=== PATIENT | female | born 1945 | race Caucasian/White ===

== ENCOUNTER → 2017-03-08 | Day surgery (SDC) | payer OTHER ==
[~2017-03-08] MED LIST: ACETAMINOPHEN/HYDROcodone 325 MG/5 MG TAB ONE; BUPIVACAINE/EPINEPHRINE 0.5% PF 10 ML VIAL ONE; CLINDAMYCIN PHOS 600 MG/4 ML VIAL ONE; LACTATED RINGER'S 1000 ML INJ 1,000 ML ONE; MEPERIDINE HCL 25 MG/ML VIAL ONE; MIDAZOLAM HCL 2 MG/2 ML VIAL ONE; ONDANSETRON HCL 4 MG/2 ML VIAL IV PUSH ONE; PROPOFOL 200 MG/20 ML AMP IV ONE; VANCOMYCIN HCL 1000 MG VIAL ONE
--- NOTE | 2017-03-10 13:03 | MP ---
cc: MILES FUENTES M.D. DATE OF SURGERY: 03/08/2017 PREOPERATIVE DIAGNOSIS Right knee medial and lateral meniscus tear. POSTOPERATIVE DIAGNOSES Right knee medial and lateral meniscus tear. PROCEDURE Right knee arthroscopic partial medial and lateral meniscectomy. SURGEON Dr. Miles Fuentes ANESTHESIA General. ESTIMATED BLOOD LOSS Less than 10 cc. TOURNIQUET TIME Zero minutes. COMPLICATIONS None. JUSTIFICATION This patient is a 71-year-old female who has increasing pain in the right knee with failure of conservative treatment. Clinical exam as well as MRI confirmed the above-named findings. The patient was counseled as to the risks, benefits and alternatives to the above-named proposed surgical procedure. She did wish to proceed with surgery. PROCEDURE IN DETAIL Written consent was obtained. The patient was identified by name, taken to the operating room and placed supine on the operating table. General anesthesia was administered as well as 600 mg of IV clindamycin and one gram of IV vancomycin as she does have a penicillin allergy. The right thigh was carefully placed in a well-padded leg valenzuela. The right lower extremity was prepped and draped using isopropyl alcohol, Hibiclens solution and DuraPrep solution. After a timeout was performed, a standard medial and lateral parapatellar arthroscopic portal was established. The patellofemoral joint revealed grade II chondromalacia along the undersurface of the patella. The medial compartment revealed a large complex tear of the posterior horn of the medial meniscus. An arthroscopic biter followed by an arthroscopic shaver was introduced into the medial compartment to perform a partial medial meniscectomy. The meniscal rim was probed and noted to be stable. There was evidence of grade II and some grade III chondromalacia of the medial femoral condyle. The intercondylar notch revealed the anterior and posterior cruciate ligament to be intact. She did have significant synovitis within her knee. The lateral compartment did reveal a midbody tear of the lateral meniscus extending into the anterior and posterior horns and also some focal grade II chondromalacia of the lateral femoral condyle. An arthroscopic shaver was introduced into the lateral compartment to perform partial lateral meniscectomy. The meniscal rim was again probed and noted to be stable after meniscectomy. At the conclusion of the surgical procedure 30 cc of 0.5% Marcaine with epinephrine was injected into the knee joint. The arthroscopic portals were closed with 3-0 Prolene suture. Sterile dressings were applied. The patient tolerated the procedure well with no intraoperative complications noted. MD CHLOE Link/ISATU /3:55 PM /12:50 PM
== END | disposition home or self-care (01) ==
LOC: ESDC 13:01
PROVIDERS: ATTEND Orthopaedic Surgery Sports Medicine
DX: S83.231A Complex tear of medial meniscus, current injury, right knee, initial encounter (principal); S83.281A Other tear of lateral meniscus, current injury, right knee, initial encounter
CPT/HCPCS: 01400; 29880; J2175; J2250; J2405; J3010; J3370; J7120

== ENCOUNTER → 2018-01-12 | Outpatient (CLI) | payer OTHER ==
[~2018-01-12] MED LIST changes: -ACETAMINOPHEN/HYDROcodone 325 MG/5 MG TAB ONE; +ASPI1TAB57 PO; -BUPIVACAINE/EPINEPHRINE 0.5% PF 10 ML VIAL ONE; -CLINDAMYCIN PHOS 600 MG/4 ML VIAL ONE; +D31000CA3 PO; -LACTATED RINGER'S 1000 ML INJ 1,000 ML ONE; +LEVO25TA4 PO; -MEPERIDINE HCL 25 MG/ML VIAL ONE; -MIDAZOLAM HCL 2 MG/2 ML VIAL ONE; -ONDANSETRON HCL 4 MG/2 ML VIAL IV PUSH ONE; +OXYGENDME NAS.CANULA; -PROPOFOL 200 MG/20 ML AMP IV ONE; +UMEC1AER INH; -VANCOMYCIN HCL 1000 MG VIAL ONE; +VITA10004 PO
== END ==
LOC: CPRE 11:21
PROVIDERS: ATTEND Orthopaedic Surgery Sports Medicine
DX: M17.11 Unilateral primary osteoarthritis, right knee (principal)

== ENCOUNTER 2018-01-29 05:11 | Inpatient (IN) | payer OTHER, MEDICARE ==
[~2018-01-29] VITALS: Ht 160 cm; Wt 102.4 kg
[2018-01-29] MEDS ORDERED: POVIDONE IODINE 5% (ANTISEPSIS KIT) 4 APPLICATIONS EACH NARE PRN (05:45)
[2018-01-29] MEDS ORDERED: DEXAMETHASONE SOD PHOS 20 MG/5 ML VIAL IV ONE (05:45)
[2018-01-29] MEDS ORDERED: CHLORHEXIDINE GLUCONATE 4% SOLN 120 ML BTL TOPICAL SCH (05:45)
[2018-01-29] MEDS ORDERED: SODIUM CHLORID 0.9% 500 ML IV PRN (05:45)
[2018-01-29] MEDS ORDERED: VANCOMYCIN 1000 MG/NS 250 ML (for <70 kg) IV SCH ×2 (05:45)
[2018-01-29] MEDS ORDERED: POVIDONE IODINE 7.5% SCRUB 118 ML BOTTLE TOPICAL SCH (05:45)
[2018-01-29] MEDS ORDERED: CHLORHEXIDINE GLUCONATE 2 % 1 PACK (2 CLOTHS) TOPICAL PRN (05:45)
[2018-01-29] MEDS ORDERED: LACTATED RINGER'S 1000 ML IV PRN (05:45)
[2018-01-29] MEDS ORDERED: METOPROLOL TARTRATE 25 MG TAB PO PRN (05:45)
[2018-01-29 05:54] LABS: BACTERIA, URINE FEW /hpf; BILIRUBIN, URINE NEG (NEG); BLOOD, URINE NEG (NEG); GLUCOSE,URINE NEG (NEG); KETONE, URINE NEG (NEG); MUCUS URINE FEW /lpf (OCC); NITRITE,URINE NEG (NEG); PH, URINE 5.5 (5.0-8.5); SQUAMOUS EPITHELIAL CELL URINE 6 /hpf (0-5); URINE COLOR YELLOW (YELLW/STRAW); URINE LEUKOCYTE ESTERASE LARGE (NEG)
[2018-01-29] MEDS ORDERED: MACR100C2 PO (06:12)
[2018-01-29] MEDS ORDERED: FAMOTIDINE 20 MG/2 ML VIAL ONE (06:23)
[2018-01-29] MEDS ORDERED: ACETAMINOPHEN 1000 MG/100 ML 100 ML IV ONE (06:23)
[2018-01-29 06:25] VITALS: PULSE 80
[2018-01-29] MEDS ORDERED: MIDAZOLAM HCL 2 MG/2 ML VIAL ONE (06:37)
[2018-01-29] MEDS ORDERED: BUPIVACAINE LIPOSOME PF 1.3% 20 ML VIAL ONE (06:38)
[2018-01-29] MEDS ORDERED: CLINDAMYCIN PHOS 900 MG/6 ML VIAL ONE (06:44)
[2018-01-29] MEDS ORDERED: SODIUM CHLORIDE 0.9% INJ 100 ML ONE (06:46)
[2018-01-29] MEDS ORDERED: ASPI81CH6 CHEW (06:57)
[2018-01-29] MEDS ORDERED: HYDR-3288 PO (06:57)
[2018-01-29] MEDS ORDERED: BISACODYL 10 MG SUPP RECTAL PRN (07:00)
[2018-01-29] MEDS ORDERED: diphenhydrAMINE HCL 50 MG/ML VIAL IV PUSH PRN (07:00)
[2018-01-29] MEDS ORDERED: ONDANSETRON HCL 4 MG/2 ML VIAL IVP PRN (07:00)
[2018-01-29] MEDS ORDERED: ROPIVACAINE PERI-ARTICULAR INJECTION. P-ARTICULR SCH ×5 (07:00)
[2018-01-29] MEDS ORDERED: ACETAMINOPHEN/HYDROcodone 325 MG/7.5 MG TAB PO PRN (07:00)
[2018-01-29] MEDS ORDERED: TRANEXAMIC ACID IV SCH (07:00)
[2018-01-29] MEDS ORDERED: ZOLPIDEM TARTRATE 5 MG TAB PO PRN (07:00)
[2018-01-29] MEDS ORDERED: TRANEXAMIC PERI-ARTICULAR 3,000 MG/NS 100 ML P-ARTICULR SCH ×2 (07:00)
[2018-01-29] MEDS ORDERED: MORPHINE SULFATE 4 MG/ML INJ IV PUSH PRN (07:00)
[2018-01-29] MEDS ORDERED: SODIUM CHLORIDE 0.9% IV SCH (07:00)
--- NOTE | 2018-01-29 07:10 | HHI.DCPOC ---
Discharge Care Plan Diagnosis: (1) Primary localized osteoarthrosis, lower leg Your Health Problems Are: Difficulty with ADL Goals to Promote Your Health * To prevent worsening of your condition and complications * To maintain your health at the optimal level Directions to Meet Your Goals Take your medications as prescribed Follow your dietary instruction Follow activity as directed Keep your appointments as scheduled Take your immunizations and boosters as scheduled If your symptoms worsen call your PCP, if no PCP go to Urgent Care Center or Emergency Room Smoking is Dangerous to Your Health. Avoid second hand smoke Call the 24-hour hour crisis hotline for domestic abuse at Montrell Berry Jan 29, 2018 07:10
--- NOTE | 2018-01-29 07:11 | HHI.FF ---
Face to Face Verification Diagnosis: (1) Primary localized osteoarthrosis, lower leg Physical Therapy Gait training, Safety evaluation, Transfer training, bed to chair Knee: Total knee, Protocol: Right, Full weight bearing Right LE Weight Bearing: WB as tolerated Nursing RN: 3 days/week x 2 weeks Nursing: Dressing changes Dressing Changes: Daily dressing change I have seen patient Angelica Valerio on 01/29/18. My clinical findings support the need for the requested home health care services because: Limited ability to care for self High risk of falls I certify that my clinical findings support that this patient is homebound because: Post-op weakness Unsteady gait/balance Montrell Berry Jan 29, 2018 07:11
[2018-01-29] MEDS ORDERED: GENTAMICIN SULFATE 80 MG/2 ML VIAL ONE (07:12)
[2018-01-29] MEDS ORDERED: cefTRIAXone 1,000 MG/NS 100 ML IV SCH ×2 (07:15)
[2018-01-29] MEDS ORDERED: RESP: ALBUTEROL 2.5 MG/IPRATROPIUM 0.5 MG NEB (PRN) NEB (08:00)
[2018-01-29] MEDS ORDERED: Post-op Orders (for Pharmacy) XX ONE (08:57)
[2018-01-29] MEDS: UMECLIDINIUM 62.5 MCG/VILANTEROL 25 MCG INHALER INH SCH (09:00)
[2018-01-29] MEDS: SODIUM CHLOR 0.9% 1000 ML INJ 1,000 ML IV SCH ×2 (09:15→16:53)
[2018-01-29] MEDS ORDERED: *morphine SULFATE 8 MG/ML PERIprocedure ONLY ONE (09:25)
[2018-01-29] MEDS ORDERED: DO NOT ADM ANY ANTICOAGULANT DRUGS PRN (09:45)
--- NOTE | 2018-01-29 09:58 | MP ---
cc: Montrell Soto MD DATE OF OPERATION: 01/29/2018 PREOPERATIVE DIAGNOSIS: Right knee osteoarthritis. POSTOPERATIVE DIAGNOSIS: Right knee osteoarthritis. PROCEDURE PERFORMED: Right total knee arthroplasty. SURGEON: Dr. Kennedy Soto CLOTHES PRESSER: ALEXANDRE Castellano. ANESTHESIA: General with femoral nerve block. ESTIMATED BLOOD LOSS: 100 mL. COMPLICATIONS: None. TOURNIQUET TIME: 30 minutes at 300 mmHg. IMPLANTS USED: DePuy Attune size 5 posterior stabilized femoral component, size 4 rotating platform tibial baseplate, a size 5 mm polyethylene tibial insert, size 32 patella. JUSTIFICATION: This patient is a 72-year-old female with a history of severe end-stage osteoarthrosis involving the right knee. She has severe disabling stabbing pain with standing, walking ambulation, weightbearing and severe pain at rest. She has failed greater than 3 months of nonoperative conservative treatment to include medication therapy, injections, ambulatory assistive aids, home exercise program, activity modification and weight loss attempts. X-rays of the right knee reveal severe end-stage osteoarthritis with [id number] joint space narrowing, subchondral sclerosis, subchondral cyst osteophyte formation, varus deformity with subluxation. The patient was counseled as to the risks, benefits, alternatives to a total knee arthroplasty. The risks were discussed, which include, but are not limited to anesthesia, bleeding, infection, damage to nerves and blood vessels, pain, stiffness, failure of implants, blood clots, pulmonary embolism and even . The patient's pain is severe. She favored the benefits over the risks and did wish to proceed with surgery. PROCEDURE IN DETAIL: Written consent was obtained. The patient identified by name, taken to the operating room and placed supine on the operating room table. General anesthesia was administered, as well as 1 gram of IV vancomycin and 900 mg of IV clindamycin, 1 gram of IV Rocephin, as well as 10 mg of IV Decadron and 15 mg/kg of IV tranexamic acid. The radiologist did perform a preoperative adductor canal femoral nerve block to the right lower extremity. A well-padded tourniquet was placed on the right thigh. The right lower extremity was then prepped and draped using Isuprel alcohol, Hibiclens solution and ChloraPrep solution. After a time-out was performed, an Esmarch bandage was used to exsanguinate the right lower extremity. The tourniquet inflated to 300 mmHg. A longitudinal incision made over the anterior aspect of the right knee. Medial parapatellar arthrotomy was performed. The patella was everted. A patellar resection guide was used to resect 7 mm of patella. The size 32 mm guide was placed. Three drill holes were placed and a 32 mm trial fit well. Attention was turned to the femur where an intramedullary guide lisha was placed and the distal femoral guide was set to remove 10 mm of distal femur, 5 degrees off the anatomic valgus axis alignment. An oscillating saw was used to perform the distal femoral cut. Attention turned to the tibia where an extramedullary tibial guide was set to remove 5 mm off the lowest portion of the medial tibial plateau tibia. The tibial guide was pinned in place and a tibial cut was performed. A 5 mm spacer block showed full extension. Attention was turned back to the femur where the AP sizer block marked measured a size 5. The anterior reference 3-degree external rotation guide was used to pin a size [address] The anterior, posterior and chamfer cuts were performed. A size 5 PCL box was pinned in place and the PCL box cut with an oscillating saw. The medial and lateral meniscus remnants were removed as well as bone and soft tissue debris from the posterior portion of the knee. A size 4 tibial base was pinned in place and the tibia was drilled and punched. Trial components were removed and final components cemented in place. With the current components, the patient could achieve full extension of 0 degrees and flexion to 140. No evidence of tibial liftoff. Varus/valgus balance appeared appropriate and symmetric and the patella was noted to track centrally. The tourniquet deflated. Bovie cautery was used for hemostasis. The surgical wound was thoroughly irrigated with sterile saline pulse lavage antibiotic impregnated solution. The arthrotomy incision was closed with #1 Vicryl suture, subcutaneous layer with 2-0 Vicryl suture and skin was closed with Dermabond. A sterile dressing was applied. The patient tolerated the procedure well with no intraoperative complications noted. Kennedy Berry , Physician Fan Installer Certified was present during the entire procedure to include patient positioning and the procedure itself. The medical necessity of a physician assistant director of admissions was indicated in this case due to the complexity of the procedure. He assisted with appropriate manipulation of the leg and also retraction of muscle, bone, tendon, bone and neurovascular structures. He assisted with preparation of bone and also implantation of the prosthetic replacement. MD CHLOE Link/PORSHA , 08:36 AM , 09:56 AM
--- NOTE | 2018-01-29 10:14 | RADRPT ---
EXAM DATE/TIME: 01/29/2018 09:19 [facility] COMPARISON: No previous studies available for comparison. INDICATIONS : Post op right total knee replacement. MEDICAL HISTORY : None. SURGICAL HISTORY : None. ENCOUNTER: Initial ACUITY: 1 day PAIN SCORE: 3/10 LOCATION: Right Knee FINDINGS: Postsurgical features of right knee arthroplasty. Arthroplasty components are in anatomic alignment. No significant acute bony fracture. Immediate postsurgical soft tissue features. CONCLUSION: 1. Status post right knee arthroplasty in anatomic alignment without significant acute bony fracture. Joe Freedman MD on January 29, 2018 at 10:11 Board Certified Radiologist. This report was verified electronically.
[2018-01-29] MEDS ORDERED: LIDOCAINE HCL 1% PF 5 ML SYRINGE OTHER ONE (12:00)
[2018-01-29] MEDS ORDERED: NEOSTIGMINE 5 MG/5 ML SYRINGE IV PUSH ONE (12:00)
[2018-01-29] MEDS ORDERED: GLYCOPYRROLATE 1 MG/5 ML SYRINGE IV PUSH ONE (12:00)
[2018-01-29] MEDS ORDERED: PROPOFOL 200 MG/20 ML AMP IV ONE (12:00)
[2018-01-29] MEDS ORDERED: ONDANSETRON HCL 4 MG/2 ML VIAL IV ONE (12:00)
[2018-01-29] MEDS ORDERED: ROCURONIUM INJ 50 MG/5 ML SYRINGE IV PUSH ONE (12:00)
[2018-01-29] MEDS ORDERED: ePHEDrine/NS 25 MG/5 ML SYRINGE IV ONE (12:00)
[2018-01-29] MEDS ORDERED: PHENYLEPH/NS 1000 MCG/10 ML SYR IV ONE (12:00)
[2018-01-29] MEDS ORDERED: *morphine SULFATE 4 MG/ML PERIprocedure ONLY ONE (12:58)
[2018-01-29 13:30] VITALS: BP 98/64; PULSE 83; RESP 18; TEMP 97.3; O2SAT 90
[2018-01-29] MEDS: CLINDAMYCIN 900 MG/NS PREMIX 50 ML IV SCH (15:00)
[2018-01-29] MEDS ORDERED: CLINDAMYCIN INJ 900 MG in SODIUM CHLORIDE 0.9% INJ 100 ML IV SCH (15:00)
[2018-01-29 16:40] VITALS: BP 112/58; PULSE 82; RESP 17; TEMP 96.6; O2SAT 91
[2018-01-29 16:50] VITALS: O2SAT 96
[2018-01-29] MEDS: VANCOMYCIN INJ 1,000 MG in SODIUM CHLOR 0.9% 250 ML INJ 250 ML IV SCH (18:39)
--- NOTE | 2018-01-29 19:46 | PD.CONS ---
[facility] Request[facility] By Primary Care Physician Tyrell Pepe MD Diagnoses: History of Present Illness 72-year-old female with a history of hypothyroidism, COPD, who is currently postoperative day 0 elective right knee replacement. She reports pain is controlled. Denies any chest pain, shortness breath, nausea, vomiting. She reports recently feeling all right. Patient does report recently being treated for UTI. She is completed all but one tablet of Macrobid course. She denies ever having dysuria, reports UTI was asymptomatic. Review of Systems Except as stated in HPI: all other systems reviewed are Neg Past Family Social History Allergies: Coded Allergies: Penicillins (Verified Allergy, Severe, RASH, 01/12/18) mushroom (Verified Allergy, Severe, Anaphylaxis, 01/12/18) Past Medical History Hyperlipidemia COPD Osteoarthritis Hypothyroidism Obstructive sleep apnea on oxygen Hypovitaminosis D vitamin B12 deficiency Past Surgical History Hysterectomy Toe surgery bilaterally Meniscal surgery Sacral nerve surgery Reported Medications Oxygen Macrobid 100 mg twice daily. Aspirin 81 mg daily [place] 7.5325. 1-2 tablets every 6 hours as needed Levothyroxine 25 g daily Vitamin B12 1000 g by mouth daily Vitamin D 1000 units daily Family History mother with diabetes. Father from old age at 96 years old. Social History Quit smoking many years ago. Very rare alcohol use. Denies any illicit drugs. Physical Exam Vital Signs Vital Signs Date Time Temp Pulse Resp B/P (MAP) Pulse Ox O2 Delivery O2 Flow Rate FiO2 01/29/18 16:50 96 Nasal Cannula 2.00 01/29/18 16:40 96.6 82 17 112/58 (76) 91 01/29/18 13:30 97.3 83 18 98/64 (75) 90 01/29/18 13:00 98.3 81 18 114/55 (74) 94 Nasal Cannula 2 01/29/18 12:30 80 18 110/59 (76) 94 Nasal Cannula 2 01/29/18 12:00 74 18 97/51 (66) 94 Nasal Cannula 2 01/29/18 11:30 76 18 98/50 (66) 95 Nasal Cannula 2 01/29/18 11:00 83 18 93/48 (63) 95 Nasal Cannula 3 01/29/18 10:15 84 18 95/49 (64) 95 Nasal Cannula 3 01/29/18 10:00 85 18 97/50 (66) 96 Nasal Cannula 3 01/29/18 09:45 85 18 102/55 (71) 94 Nasal Cannula 3 01/29/18 09:30 89 17 103/49 (67) 94 Nasal Cannula 3 01/29/18 09:15 92 17 112/53 (72) 94 Nasal Cannula 3 01/29/18 09:00 97.9 103 15 114/53 (73) 95 Simple Mask 6 01/29/18 06:25 80 01/29/18 06:25 97 Nasal Cannula 2 01/29/18 06:02 97.3 73 18 140/63 (88) 90 Physical Exam GENERAL: This is a well-nourished, well-developed patient, in no apparent distress.alert and oriented 3. SKIN: No rashes, ecchymoses or lesions. Cool and dry. HEAD: Atraumatic. Normocephalic. No temporal or scalp tenderness. EYES: Pupils equal round and reactive. Extraocular motions intact. No scleral icterus. No injection or drainage. ENT: Nose without bleeding, purulent drainage or septal hematoma. Throat without erythema, tonsillar hypertrophy or exudate. Uvula midline. Airway patent. NECK: Trachea midline. No JVD or lymphadenopathy. Supple, nontender, no meningeal signs. CARDIOVASCULAR: Regular rate and rhythm without murmurs, gallops, or rubs. RESPIRATORY: Clear to auscultation. Breath sounds equal bilaterally. No wheezes , rales, or rhonchi. GASTROINTESTINAL: Abdomen soft, non-tender, nondistended. No hepato-splenomegaly , or palpable masses. No guarding. MUSCULOSKELETAL: Extremities without clubbing, cyanosis, or edema. No joint tenderness, effusion, or edema noted. No calf tenderness. Negative Homans sign bilaterally. NEUROLOGICAL: Awake and alert. Cranial nerves II through XII intact. Motor and sensory grossly within normal limits. Five out of 5 muscle strength in all muscle groups. Normal speech. Laboratory Laboratory Tests Test 01/29/18 05:35 Urine Color YELLOW Urine Turbidity HAZY Urine pH 5.5 Urine Specific [place] 1.011 Urine Protein NEG Urine Glucose (UA) NEG Urine Ketones NEG Urine Occult Blood NEG Urine Nitrite NEG Urine Bilirubin NEG Urine Urobilinogen LESS THAN 2.0 Urine Leukocyte Esterase LARGE Urine RBC 1 Urine WBC 8 Urine Squamous Epithelial Cells 6 Urine Bacteria FEW Urine Mucus FEW Microscopic Urinalysis Comment CULTURE INDICATED Date/Time Source Procedure Growth Status 01/29/18 05:35 Urine Clean Catch Urine Culture Pending Received Imaging Last Impressions Knee X-Ray 01/29/18 0653 Signed Impressions: Service Date/Time: Monday, January 29, 2018 09:19 - CONCLUSION: 1. Status post right knee arthroplasty in anatomic alignment without significant acute bony fracture. Joe Freedman MD Assessment and Plan Assessment and Plan //Postoperative elective right knee replacement on 01/29. = Postoperative management as per surgical service = Awaiting return of bowel function //Hyperlipidemia. Continue home medication //COPD. Continue home medication. Do nebs as needed. //Obstructive sleep apnea on CPAP. Patient has home CPAP which she will use. //Hypothyroidism. Chronic. Continue home medication. //Suspected patient with asymptomatic bacteriuria. Urinalysis on admission with 8 white blood cells. As patient is asymptomatic this is likely not something needs to be treated. //prophylaxis. As per surgical service. Discussed Condition With patient, nurse Montrell Solo MD Jan 29, 2018 19:46
[2018-01-29 20:00] VITALS: BP 123/66; PULSE 85; RESP 17; TEMP 96.9; O2SAT 94
[2018-01-29] MEDS ORDERED: DOCUSATE SODIUM 50 MG/SENNA 8.6 MG TAB PO ONE (20:00)
[2018-01-29] MEDS ORDERED: MAGNESIUM HYDROXIDE SUSP 30 ML CUP PO ONE (20:00)
[2018-01-30] VITALS (7 sets, daily range): BP systolic 104–136; BP diastolic 55–72; PULSE 82–89; RESP 17–22; TEMP 96.7–97.8; O2SAT 92–98
[2018-01-30] MEDS: CLINDAMYCIN 900 MG/NS PREMIX 50 ML IV SCH ×2 (00:01→07:30)
[2018-01-30] MEDS: SODIUM CHLOR 0.9% 1000 ML INJ 1,000 ML IV SCH ×3 (00:19→19:46)
[2018-01-30] MEDS: LEVOTHYROXINE SODIUM 25 MCG TAB PO SCH ×2 (00:40→05:37)
[2018-01-30] MEDS: VANCOMYCIN INJ 1,000 MG in SODIUM CHLOR 0.9% 250 ML INJ 250 ML IV SCH (05:37)
[2018-01-30 06:05] LABS: AUTOMATED NEUTROPHIL # 12.6 TH/MM3 (1.8-7.7); BASOPHIL % 0.3 % (0.0-2.0); EOSINOPHIL % 0.1 % (0.0-4.0); HEMATOCRIT 40.6 % (35.0-46.0); HEMOGLOBIN 12.9 GM/DL (11.6-15.3); LYMPHOCYTE # 0.7 TH/MM3 (1.0-4.8); MEAN CELL VOLUME 84.7 FL (80.0-100.0); MEAN CORPUSCULAR HEMOGLOBIN 26.9 PG (27.0-34.0); MEAN CORPUSCULAR HGB CONC 31.8 % (32.0-36.0); MEAN PLATELET VOLUME 8.3 FL (7.0-11.0); MONO % 6.8 % (0.0-8.0); NEUT % 87.8 % (16.0-70.0); PLATELET COUNT 310 TH/MM3 (150-450); RED BLOOD COUNT 4.79 MIL/MM3 (4.00-5.30); RED CELL DISTRIBUTION WIDTH 14.8 % (11.6-17.2); WHITE BLOOD COUNT 14.3 TH/MM3 (4.0-11.0)
[2018-01-30 06:06] LABS: CALCIUM 8.5 MG/DL (8.5-10.1); CREATININE 1.22 MG/DL (0.50-1.00); MAGNESIUM 2.1 MG/DL (1.5-2.5)
--- NOTE | 2018-01-30 08:36 | PD.ORT.PN ---
Subjective Post Op Day #: 1 Subjective Remarks pain controlled. Objective Vitals Vital Signs Date Time Temp Pulse Resp B/P (MAP) Pulse Ox O2 Delivery O2 Flow Rate FiO2 01/30/18 04:00 96.8 82 22 104/55 (71) 93 01/30/18 00:00 96.7 82 18 114/61 (78) 93 01/29/18 20:00 96.9 85 17 123/66 (85) 94 01/29/18 16:50 96 Nasal Cannula 2.00 01/29/18 16:40 96.6 82 17 112/58 (76) 91 01/29/18 13:30 97.3 83 18 98/64 (75) 90 01/29/18 13:00 98.3 81 18 114/55 (74) 94 Nasal Cannula 2 01/29/18 12:30 80 18 110/59 (76) 94 Nasal Cannula 2 01/29/18 12:00 74 18 97/51 (66) 94 Nasal Cannula 2 01/29/18 11:30 76 18 98/50 (66) 95 Nasal Cannula 2 01/29/18 11:00 83 18 93/48 (63) 95 Nasal Cannula 3 01/29/18 10:15 84 18 95/49 (64) 95 Nasal Cannula 3 01/29/18 10:00 85 18 97/50 (66) 96 Nasal Cannula 3 01/29/18 09:45 85 18 102/55 (71) 94 Nasal Cannula 3 01/29/18 09:30 89 17 103/49 (67) 94 Nasal Cannula 3 01/29/18 09:15 92 17 112/53 (72) 94 Nasal Cannula 3 01/29/18 09:00 97.9 103 15 114/53 (73) 95 Simple Mask 6 I/O 01/29/18 01/29/18 01/29/18 01/30/18 01/30/18 01/30/18 07:00 15:00 23:00 07:00 15:00 23:00 Intake Total 950 ml 50 ml Output Total 100 ml 200 ml Balance 850 ml -200 ml 50 ml Intake IV Total 50 ml Other 950 ml Output Urine Total 200 ml Estimated Blood Loss 100 ml # Voids 1 5 # Bowel Movements 0 Result Diagram: 01/30/1830 01/30/18 0530 Objective Remarks sitting, nad dressing c/d/i neg homans nvi Assessment & Plan Ortho Post Op Day #: 1 Problem List: Assessment and Plan s/p R TKA wbat ok to maintain dressing unless saturated lovenox, d/c on asa81 d/c planning to snf rx in chart f/up dr. tom 2 weeks Montrell Berry Jan 30, 2018 08:36
[2018-01-30] MEDS: ENOXAPARIN SODIUM 40 MG/0.4 ML SYRINGE SQ SCH (08:44)
[2018-01-30] MEDS: ACETAMINOPHEN/HYDROcodone 325 MG/7.5 MG TAB PO PRN ×2 (08:50→12:54)
[2018-01-30] MEDS: UMECLIDINIUM 62.5 MCG/VILANTEROL 25 MCG INHALER INH SCH (08:56)
--- NOTE | 2018-01-30 11:31 | HHI.PR ---
Subjective Remarks Follow-up visit status post right knee replacement, COPD. Patient seen and examined today sitting in the chair. Reports she is doing well. Reports her shortness of breath has not worsened. Continues to have O2 nasal cannula. Patient states she uses home O2 on and off but usually more often on and off. Denies pain and discomfort. Denies SOB/ dyspnea. Denies chest pain, palpitations, headaches, dizziness. Denies fevers, chills, n/v/d. Denies dysuria. Objective Vitals Vital Signs Date Time Temp Pulse Resp B/P (MAP) Pulse Ox O2 Delivery O2 Flow Rate FiO2 01/30/18 08:00 97.4 87 19 115/56 (75) 93 01/30/18 04:00 96.8 82 22 104/55 (71) 93 01/30/18 00:00 96.7 82 18 114/61 (78) 93 01/29/18 20:00 96.9 85 17 123/66 (85) 94 01/29/18 16:50 96 Nasal Cannula 2.00 01/29/18 16:40 96.6 82 17 112/58 (76) 91 01/29/18 13:30 97.3 83 18 98/64 (75) 90 01/29/18 13:00 98.3 81 18 114/55 (74) 94 Nasal Cannula 2 01/29/18 12:30 80 18 110/59 (76) 94 Nasal Cannula 2 01/29/18 12:00 74 18 97/51 (66) 94 Nasal Cannula 2 I/O 01/29/18 01/29/18 01/29/18 01/30/18 01/30/18 01/30/18 07:00 15:00 23:00 07:00 15:00 23:00 Intake Total 950 ml 50 ml Output Total 100 ml 200 ml Balance 850 ml -200 ml 50 ml Intake IV Total 50 ml Other 950 ml Output Urine Total 200 ml Estimated Blood Loss 100 ml # Voids 1 5 # Bowel Movements 0 Result Diagram: 01/30/18 0530 01/30/18 0530 Imaging Last Impressions Knee X-Ray 01/29/18 0653 Signed Impressions: Service Date/Time: Monday, January 29, 2018 09:19 - CONCLUSION: 1. Status post right knee arthroplasty in anatomic alignment without significant acute bony fracture. Joe Freedman MD Objective Remarks GENERAL: This is a well-nourished, well-developed patient, in no apparent distress. SKIN: Warm and dry. HEENT: Normocephalic. Pupils equal round and reactive. Nose without bleeding. Airway patent. NECK: Trachea midline. CARDIOVASCULAR: Regular rate and rhythm without murmurs, gallops, or rubs. RESPIRATORY: Diminished breath sounds. no wheezes, rales, or rhonchi. O2 nasal cannula in place. GASTROINTESTINAL: Abdomen soft, non-tender, nondistended. Bowel Sounds normoactive x4. MUSCULOSKELETAL: Extremities without clubbing, cyanosis. Right lower extremity trace edema NEUROLOGICAL: Awake and alert. Oriented to place, person. No focal neuro deficit. Moves all extremities. Normal speech. A/P Problem List: (1) Status post right knee replacement ICD Code: Z96.651 - Presence of right artificial knee joint (2) Primary localized osteoarthrosis, lower leg ICD Code: M17.10 - Unilateral primary osteoarthritis, unspecified knee Assessment and Plan Patient is a 72-year-old female with history of hypothyroidism, COPD who came into the hospital for elective right knee replacement. Consulted for medical management. Status post elective right knee replacement 01/29/18 -Postoperative management by surgical service -Pain management with bowel regimen -Physical therapy eval and treat COPD, not in exacerbation -Continue home medications anuro-elipta -Duo nebs as needed. Encourage use of incentive spirometer Obstructive sleep apnea on CPAP -ill bring her on CPAP from home Hypothyroidism Continue home medication History of urinary tract infection -Prior to coming to the hospital patient has a urinary tract infection that was treated with Macrobid about a week ago. -UA positive, pending cultures. Patient was given ceftriaxone IV every 24 hours -Will DC ceftriaxone if cultures are negative DVT prop Lovenox Discharge Planning Plan to [facility] Rehab tomorrow when patient is cleared by ortho team Chip Sandoval Jan 30, 2018 11:31
[2018-01-30] MEDS: DOCUSATE SODIUM 100 MG CAP PO SCH (19:45)
[2018-01-30] MEDS: MULTIVITAMINS/MINERALS THERAPEUTIC TAB PO SCH (19:45)
[2018-01-31 01:25] VITALS: BP 118/75; PULSE 108; RESP 18; TEMP 98.7; O2SAT 92
[2018-01-31] MEDS: LEVOTHYROXINE SODIUM 25 MCG TAB PO SCH (05:26)
[2018-01-31 07:45] VITALS: BP 108/57; PULSE 86; RESP 18; TEMP 98.5; O2SAT 95
[2018-01-31] MEDS: ENOXAPARIN SODIUM 40 MG/0.4 ML SYRINGE SQ SCH (07:49)
[2018-01-31] MEDS: MULTIVITAMINS/MINERALS THERAPEUTIC TAB PO SCH (07:49)
[2018-01-31] MEDS: DOCUSATE SODIUM 100 MG CAP PO SCH (07:49)
--- NOTE | 2018-01-31 08:07 | PD.ORT.PN ---
Subjective Post Op Day #: 2 Subjective Remarks pain controlled. doing better. Objective Vitals Vital Signs Date Time Temp Pulse Resp B/P (MAP) Pulse Ox O2 Delivery O2 Flow Rate FiO2 01/31/18 07:45 98.5 86 18 108/57 (74) 95 01/31/18 01:25 98.7 108 18 118/75 (89) 92 01/30/18 20:50 96.7 89 19 136/64 (88) 92 01/30/18 19:53 98 Nasal Cannula 2.00 01/30/18 16:00 97.8 82 17 130/72 (91) 98 01/30/18 12:00 97.6 84 18 127/60 (82) 98 I/O 01/30/18 01/30/18 01/30/18 01/31/18 01/31/18 01/31/18 07:00 15:00 23:00 07:00 15:00 23:00 Intake Total 50 ml 600 ml 480 ml 360 ml Balance 50 ml 600 ml 480 ml 360 ml Intake Oral 600 ml 480 ml 360 ml IV Total 50 ml # Voids 5 5 2 3 # Bowel Movements 0 0 0 Result Diagram: 01/30/18 0530 01/30/18 0530 Objective Remarks sitting in chair, nad dressing c/d/i mild swelling of the knee neg homans nvi Assessment & Plan Ortho Post Op Day #: 2 Problem List: Assessment and Plan s/p R TKA wbat ok to maintain dressing unless saturated lovenox, d/c on asa81 d/c planning to snf control of blood glucose levels rx in chart f/up dr. tom 2 weeks Montrell Berry Jan 31, 2018 08:07
[2018-01-31] MEDS: SODIUM CHLOR 0.9% 1000 ML INJ 1,000 ML IV SCH (08:53)
[2018-01-31] MEDS ORDERED: MAGNESIUM HYDROXIDE SUSP 30 ML CUP PO SCH (09:00)
[2018-01-31 11:17] VITALS: BP 127/66; PULSE 86; RESP 17; TEMP 98.8; O2SAT 94
== END 2018-01-31 14:54 | DRG 470 ==
LOC: HSDC 05:11 → HSDI 06:56 → N06A 13:18
PROVIDERS: ADMIT Orthopaedic Surgery Sports Medicine; ATTEND Orthopaedic Surgery Sports Medicine
PROC: 3E0T3BZ Introduction of Anesthetic Agent into Peripheral Nerves and Plexi, Percutaneous Approach (ICD-10-PCS; 2018-01-29)
PROC: 0SRC0J9 Replacement of Right Knee Joint with Synthetic Substitute, Cemented, Open Approach (ICD-10-PCS; principal; 2018-01-29 07:01)
DX: M17.11 Unilateral primary osteoarthritis, right knee (principal); J44.9 Chronic obstructive pulmonary disease, unspecified; Z68.41 Body mass index [BMI] 40.0-44.9, adult; M25.761 Osteophyte, right knee; M21.161 Varus deformity, not elsewhere classified, right knee; E03.9 Hypothyroidism, unspecified; E78.5 Hyperlipidemia, unspecified; G47.33 Obstructive sleep apnea (adult) (pediatric); E55.9 Vitamin D deficiency, unspecified; E66.9 Obesity, unspecified; E53.8 Deficiency of other specified B group vitamins; Z87.891 Personal history of nicotine dependence
CPT/HCPCS: 73560; 80048; 81001; 83735; 85025; 86850; 86900; 86901; 87086; 94150; C1776; C9290; J0131; J0696; J0735; J1100; J1580; J1650; J1885; J2250; J2270; J2370; J2405; J2710; J2795; J3010; J3370; J7030; J7050; J7120; L1830